=== PATIENT | male | born 1980 | race Caucasian/White ===

== ENCOUNTER 2017-10-13 08:47 | Emergency (ER) | payer BC ==
[~2017-10-13] VITALS: Ht 180.3 cm; Wt 105.6 kg
[2017-10-13] MEDS ORDERED: PERCOCET 5/31 TABLET PO (10:26)
[2017-10-13] MEDS ORDERED: ZOFRAN4 MG PO (10:34)
[2017-10-13 10:41] VITALS: BP 153/107
== END 2017-10-13 10:47 | disposition home or self-care (01) ==
LOC: EME 08:47
DX: K08.89 Other specified disorders of teeth and supporting structures (principal); E78.5 Hyperlipidemia, unspecified; I10 Essential (primary) hypertension; Q23.1 Congenital insufficiency of aortic valve; Z88.0 Allergy status to penicillin; Z87.891 Personal history of nicotine dependence
CPT/HCPCS: J1885